=== PATIENT | male | born 2000 | race Hispanic/Latino ===

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

== ENCOUNTER 2022-06-22 13:41 | Emergency (ER) | payer MEDICAID, OTHER ==
[~2022-06-22] VITALS: Ht 177.8 cm; Wt 154.2 kg
[2022-06-22] MEDS ORDERED: KETOROLAC 15MG/ML VIAL (15MG/ML) IV ONE (14:30)
[2022-06-22] MEDS ORDERED: MORPHINE 2 MG SYG IVP ONE (14:30)
[2022-06-22] MEDS ORDERED: 0.9% NACL 500ML IV.SOLN 500 ML IV ONE (14:30)
[2022-06-22] MEDS ORDERED: ONDANSETRON 4MG INJ IVP ONE (14:30)
[2022-06-22] MEDS ORDERED: MORPHINE 2 MG SYG ONE (14:44)
[2022-06-22] MEDS ORDERED: KETOROLAC 15MG/ML VIAL (15MG/ML) ONE (14:44)
[2022-06-22] MEDS ORDERED: ONDANSETRON 4MG INJ ONE (14:44)
[2022-06-22 14:49] LABS: BASOPHILS % (AUTO) 0.4 % (0.0-5.0); EOSINOPHILS % (AUTO) 1.9 % (0.0-8.0); HEMATOCRIT 44.6 % (42-54); LYMPHOCYTES % (AUTO) 22.1 % (21.0-51.0); MEAN CORPUSCULAR HEMOGLOBIN 25.5 pg (27.0-33.0); MEAN CORPUSCULAR HGB CONC 32.3 g/dL (32.0-36.0); MEAN CORPUSCULAR VOLUME 78.9 fL (79-99); MONOCYTES % (AUTO) 4.6 % (3.0-13.0); NEUTROPHILS % (AUTO) 70.7 % (40.0-77.0); PLATELET COUNT (AUTO) 367 K/uL (130-400); RED BLOOD CELL COUNT(AUTO) 5.65 MIL/uL (4.50-6.20); RED CELL DISTRIBUTION WIDTH 13.5 % (11.0-15.5); WHITE BLOOD COUNT (AUTO) 11.9 K/uL (4.8-10.8)
[2022-06-22 15:03] LABS: ALANINE AMINOTRANSFERASE 40 U/L (12-78); ALBUMIN 3.7 g/dL (3.5-5.0); ASPARTATE AMINOTRANSFERASE 23 U/L (10-37); CARBON DIOXIDE 35 mmol/L (21-32); CHLORIDE 98 mmol/L (101-111); CREATININE 0.7 mg/dL (0.5-1.5); GLOMERULAR FILTR. RATE CALC 134 mL/min (>90); GLUCOSE,RANDOM 136 mg/dL (70-105); POTASSIUM 3.7 mmol/L (3.5-5.1); SODIUM SERUM 135 mmol/L (136-145); TOTAL PROTEIN, SERUM 7.1 g/dL (6.0-8.3); UREA NITROGEN, BLOOD 10 mg/dL (7-18)
[2022-06-22 15:30] LABS: APPEARANCE,URINE CLEAR (CLEAR); BILIRUBIN,URINE NEGATIVE (NEGATIVE); COLOR,URINE LIGHT-YELLOW (YELLOW); GLUCOSE, URINE (UA) NEGATIVE (NEGATIVE); KETONES,URINE NEGATIVE (NEGATIVE); LEUKOCYTE ESTERASE ,URINE NEGATIVE Leu/uL (NEGATIVE); NITRATE,URINE NEGATIVE (NEGATIVE); OCCULT BLOOD,URINE NEGATIVE (NEGATIVE); PH,URINE 6.5 (5.0-8.0); PROTEIN,URINE 20 mg/dL (NEGATIVE); UROBILINOGEN,URINE 0.2 mg/dL (0.2-1.0)
[2022-06-22 15:33] LABS: MUCUS,URINE RARE LPF (None Seen); RBC,URINE 0-1 /HPF (0-1); WBC,URINE 0-1 /HPF (0-1)
[2022-06-22 15:35] LABS: LIPASE < 50 U/L (114-286)
[2022-06-22 16:47] VITALS: BP 121/75
== END 2022-06-22 16:45 | disposition home or self-care (01) ==
LOC: EDH 13:41
DX: R10.32 Left lower quadrant pain (principal)
CPT/HCPCS: 99285; 74176; 96374; 96375; 96361; 80053; 83690; 85025; 81001; 36415; J2405; J1885

== ENCOUNTER 2024-09-17 17:36 | Emergency (ER) | payer SELFPAY ==
[~2024-09-17] VITALS: Ht 175.3 cm; Wt 158.8 kg
--- NOTE | 2024-09-17 18:11 | ERN ---
ED Note History of Present Illness Stated Complaint: BACK PAIN Chief Complaint: Back Pain-No Injury Time Seen by MD: 17:37 Time Seen by Midlevel: 17:37 Dictation: The Patient is a 24-year-old male with no past medical history who presents to the emergency department with low back pain onset this morning. Patient denies any trauma but reports some heavy lifting yesterday. Patient reports he has been having problems with the his back ever since high school due to any injure you while playing football. Patient denies any urinary or fecal incontinence, denies any decreased sensation to lower extremities. Denies any urinary disco mfort. Allergies: Coded Allergies: cefdinir (Verified Allergy, Unknown, 07/17/18) Home Meds No Active Prescriptions or Reported Meds Past Medical History Past Medical History: No Pertinent History Surgical History: None RN Note Reviewed/Agreed w/PFSH: Yes Review of System Dictation Constitutional: Negative for fever,chills, and weight loss Eyes: Negative for injury, pain,redness, and discharge ENT: Negative for injury,pain or swelling Cardiovascular: Negative for chest pain, palpitations, and edema Respiratory: Negative for shortness of breath, cough, and wheezing, Abdomen/GI: Negative for abdominal pain, nausea, vomiting, diarrhea, and constipation Back: Negative for injury and pain : Negative for injury, bleeding and discharge MS/Extremity: Negative for injury and deformity positive for low back pain Skin: Negative for rash, and discoloration Neuro: Negative for headache, weakness, numbness, tingling, and seizure Psych: Negative for suicide ideation, homicidal ideation, and hallucinations Initial Vital Sign VS Vital Signs Date Time Temp Pulse Resp B/P (MAP) Pulse Ox O2 Delivery O2 Flow Rate FiO2 09/17/24 17:37 98.2 99 18 104/69 98 Room Air 0 09/17/24 17:59 21 Physical Exam Dictation Vital Signs reviewed General Appearance: Alert, oriented x 3, no acute distress, well developed, nourished. Head and Face: non-traumatic. Eyes: PERRL, pink conjunctivas, eyelid no trauma, anterior chamber with arcus senilis. Ears: Pinnas intact and no signs of trauma or erythema ear canals clear and no discharge TM no erythema Nose: No discharge, no bleeding. Oropharynx: Mouth normal, tongue pink. pharynx clear,no erythema, tonsils no exudates, no abscesses noted, mucous membrane moist Neck: Supple, non-tender, no thyromegaly, no masses, no JVD, no bruits Breast:Deferred Chest:No tenderness, no crepitus, no paradoxical movement, no retractions Lungs:Clear, well-ventilated, symmetric, no rales, no wheezing, no rhonchi, no stridor, good breath sounds bilaterally Heart: Regular rate, regular rhythm, no murmur, no gallops Vascular: no peripheral edema, dorsalis pedis 3+ bilaterally Abdomen: Soft, positive bowel sounds, nondistended, no guarding, nontender, no rebound, no masses no hepatomegaly, no splenomegaly, no Horton's sign, no hernias. Rectal: Deferred Genital: Deferred Neurological: Normal speech, motor function intact, sensory function intact Musculoskeletal: Low back tenderness, full range of motion, back nontender, full range of motion, Extremities: nontender, full range of motion Skin: Color pink, dry, no turgor, no rash, no lacerations, no abrasions, no contusions. Lymphatic: Deferred Results (Laboratory/Radiology) Laboratory/Radiology REASON: back pain ORDERING PHYSICIAN: ZELDA WAHL [employer] PROCEDURE: LUMB 2 3VW - LUMBAR SPINE 2-3VWS LUMBAR SPINE 2-3VWS HISTORY: Back pain COMPARISON: None FINDINGS: 3 images of the lumbar spine were obtained. There is straightening of normal lordotic curvature which may be related to muscle spasm or positioning. No loss of vertebral height is seen. No fracture or dislocation is seen. Degenerative changes are seen. IMPRESSION: 1. No fracture is seen. Labs Reviewed?: Yes ED Course ED Course Orders Procedure Category Date Status Time Lumbar Spine 2-3vws RAD 09/17/24 Resulted 18:06 Orphenadrine Citrate PHA 09/17/24 Complete (Norflex) 18:30 Triamcinolone Acet PHA 09/17/24 Complete 40mg/Ml 1ml (Kenalog 18:30 Ketorolac 60mg/2ml PHA 09/17/24 Complete (Toradol 60mg/2ml) 18:30 Lidocaine (Lidocaine PHA 09/17/24 Complete Patch 4%) 20:00 Current Medications Medications (Trade) Dose Ordered Sig/Daryn Route PRN Reason Start Time Stop Time Status Last Admin Dose Admin Ketorolac Tromethamine (toRADol 60MG/ 2ML) 60 mg ONCE ONCE IM 09/17/24 18:30 09/17/24 18:31 DC 09/17/24 19:24 Lidocaine (Lidocaine Patch 4%) 1 each ONCE ONCE TP 09/17/24 20:00 09/17/24 20:01 DC 09/17/24 20:08 Orphenadrine Citrate (Norflex) 60 mg ONCE ONCE IM 09/17/24 18:30 09/17/24 18:31 DC 09/17/24 19:24 Triamcinolone Acetonide (Kenalog 40) 40 mg ONCE ONCE IM 09/17/24 18:30 09/17/24 18:31 DC 09/17/24 19:24 Vital Signs Date Time Temp Pulse Resp B/P (MAP) Pulse Ox O2 Delivery O2 Flow Rate FiO2 09/17/24 17:59 98.4 79 17 115/78 98 Room Air* 0 21 09/17/24 17:37 98.2 99 18 104/69 98 Room Air 0 Medical Decision Making MDM The Patient is a 24-year-old male with no past medical history who presents to the emergency department with low back pain onset this morning. Patient denies any trauma but reports some heavy lifting yesterday. Patient reports he has been having problems with the his back ever since high school due to any injure you while playing football. Patient denies any urinary or fecal incontinence, denies any decreased sensation to lower extremities. Denies any urinary discomfort. Xray showed no fractures or dislocations. Patient with full ROM to lower extremities, no wounds noted to back, neurovascular intact. Patient will be discharge to follow up with PCP. Patient in no acute distress, nontoxic appearance, stable vital sings. Differential diagnosis: Lumbar fracture, lumbar sprain, back contusion Need for hospitalization: Patient does not meet criteria for hospitalization. There are no social concerns with this patient. DX & DISP Disposition: Discharge Departure Impression: Primary Impression: Low back pain Additional Impression: Muscle spasm Condition: Stable Scripts Lidocaine (Lidocaine) 4 % Adh..patch 1 PATCH TP DAILY for 10 Days, #10 PATCH 0 Refills Prov: ZELDA WAHL 09/17/24 Cyclobenzaprine HCl (Flexeril) 10 Mg Tab 10 MG PO TID for muscle sstiffness, #14 TAB 0 Refills Prov: ZELDA WAHL 09/17/24 Ibuprofen (Ibuprofen) 600 Mg Tablet 600 MG PO Q6H PRN for PAIN, #15 TAB Prov: ZELDA WAHL 09/17/24 Additional Instructions: Please follow up with your primary doctor in 1-2 days. Take your medications as prescribed. If symptoms worsen please return to ER. FOLLOW-UP WITH PRIMARY CARE PROVIDER IN 1 TO 2 DAYS. TAKE MEDICATIONS DIRECTED HERE IN THE EMERGENCY ROOM. OKAY TO CONTINUE HOME MEDICATIONS UNLESS OTHERWISE DISCUSSED DURING YOUR VISIT IN THE EMERGENCY ROOM TODAY. RETURN TO YOUR NEAREST EMERGENCY ROOM IF SYMPTOMS WORSEN OR IF THERE IS NO IMPROVEMENT. CALL 911 IF YOU NEED IMMEDIATE ASSISTANCE. TAKE TYLENOL OR MOTRIN [id number] NEEDED AND IF NO CONTRAINDICATIONS ARE PRESENT. INCREASE ORAL HYDRATION. A WOUND CULTURE OR URINE CULTURE WAS ORDERED HERE IN THE EMERGENCY ROOM DEPARTMENT PLEASE FOLLOW-UP WITH PRIMARY CARE PROVIDER AND ADVISE THEM TO GET REPEAT PORTS FROM OUR FACILITY. IF YOU HAD ANY KARELY WRAP/SPLINTS THAT WERE APPLIED HERE, PLEASE DO NOT REMOVE THEM UNTIL YOU SEE YOUR PRIMARY CARE OR SPECIALTY. Referrals: SELF,REFERRAL (PCP) Time of Disposition: 20:20 I have reviewed the case, and I agree with, Diagnosis and Plan ZELDA WAHL Sep 17, 2024 18:11
[2024-09-17] MEDS: ketOROlac 60 MG VIAL (30MG/ML) IM ONE (19:24)
[2024-09-17] MEDS: TRIAMCINOLONE ACETONIDE 40 MG/ML 1ML VIAL IM ONE (19:24)
[2024-09-17] MEDS: ORPHENADRINE 60MG/2ML IM ONE (19:24)
--- NOTE | 2024-09-17 19:52 | HMCIMG ---
LUMBAR SPINE 2-3VWS HISTORY: Back pain COMPARISON: None FINDINGS: 3 images of the lumbar spine were obtained. There is straightening of normal lordotic curvature which may be related to muscle spasm or positioning. No loss of vertebral height is seen. No fracture or dislocation is seen. Degenerative changes are seen. IMPRESSION: 1. No fracture is seen.
[2024-09-17] MEDS: LIDOCAINE 4% ADH..PATCH TP ONE (20:08)
[2024-09-17] MEDS ORDERED: LIDO1ADH82 TP (20:21)
[2024-09-17] MEDS ORDERED: IBUP-2070 PO (20:21)
[2024-09-17] MEDS ORDERED: CYCL10TA16 PO (20:21)
[2024-09-17 20:38] VITALS: BP 121/79; PULSE 73; RESP 16; TEMP 98.2; O2SAT 97
== END 2024-09-17 20:45 | disposition home or self-care (01) ==
LOC: EDH 17:36
DX: M54.50 Low back pain, unspecified (principal); M62.838 Other muscle spasm; Z88.1 Allergy status to other antibiotic agents
CPT/HCPCS: 99284; 72100; 96372 ×3; J1885; J3301; J2360